=== PATIENT | male | born 1940 | race Caucasian/White ===

== ENCOUNTER 2021-11-30 19:44 | Emergency (ER) | payer OTHER, BC ==
[~2021-11-30] VITALS: Ht 175.3 cm; Wt 79.4 kg
[2021-11-30 19:50] VITALS: BP_SYST 121
--- NOTE | 2021-11-30 19:50 | NUR ---
Pt to bed 1 via EMS w/ c/o "pills stuck in throat" and "choking". Respirations even and unlabored. normal skin color for ethnicity. Pt able to speak in clear, complete sentences. No acute distress at this time.
--- NOTE | 2021-11-30 19:51 | NUR ---
# 18 gauge angiocath placed to left forearm in the field by EMS. Use of asceptic technique. Opsite placed over site. Flushed with 10 cc of normal saline. No evidence of infiltration noted. Patient tolerated well.
--- NOTE | 2021-11-30 19:55 | NUR ---
Pt drank 240 mL of water at this time and states "My throat feels so much better I feel like the pills are gone". MD present at bedside and aware.
--- NOTE | 2021-11-30 21:45 | NUR ---
Pt informed medical transport will be taking him back to his SNF ETA midnight
--- NOTE | 2021-11-30 22:55 | NUR ---
Pt yelling at this time stating "Why am I here still?!". Pt informed again of his ride coming at midnight to take him back to his SNF. Pt continues yelling regardless of having been updated on his plan of care.
[2021-11-30] MEDS ORDERED: DIPHENHYDRAMINE INJ 50 MG/ML VIAL IVP ONE (23:00)
--- NOTE | 2021-12-01 00:20 | NUR ---
Patient given written and verbal discharge instructions and verbalizes understanding. ER MD discussed with patient the results and treatment provided. Patient in stable condition. ID arm band removed. IV catheter removed intact and dressing applied, no active bleeding. Patient educated on pain management and to follow up with PMD. Pain Scale 2/10. Opportunity for questions provided and answered. Medication side effect fact sheet provided. BLS transport at bedside to transport patient back to his facility. NAD. Respirations even and unlabored. Pt confirms throat feels clear now.
[2021-12-01 00:24] VITALS: BP_SYST 128
== END 2021-12-01 00:24 | disposition home or self-care (01) ==
LOC: SED 19:44
DX: K20.80 Other esophagitis without bleeding (principal); E11.9 Type 2 diabetes mellitus without complications; I10 Essential (primary) hypertension; Z88.0 Allergy status to penicillin
CPT/HCPCS: 96372; 99283; J1200

== ENCOUNTER 2022-12-21 18:56 | Emergency (ER) | payer OTHER, BC ==
[~2022-12-21] VITALS: Ht 172.7 cm; Wt 79.4 kg
--- NOTE | 2022-12-21 21:20 | NUR ---
Patient BIBA to bed 1 and connected to . CC: Cyanotic Penis.
--- NOTE | 2022-12-21 21:20 | NUR ---
PT TO ED [address] GONZALES AT BEDSIDE.
--- NOTE | 2022-12-21 21:28 | NUR ---
Dr. Her will discharge patient back to SNF.
[2022-12-21 21:32] VITALS: BP_SYST 143; BP_SYST 144
[2022-12-21] MEDS ORDERED: KETO60CR2 TP (21:38)
--- NOTE | 2022-12-21 21:42 | NUR ---
Patient given written and verbal discharge instructions and verbalizes understanding. ER MD GONZALES discussed with patient the results and treatment provided. Patient in stable condition. ID arm band removed. IV catheter removed intact and dressing applied, no active bleeding. Rx of KETOCONAZOLE given. Patient educated on pain management and to follow up with PMD. Pain Scale 0 . Opportunity for questions provided and answered. Medication side effect fact sheet provided.
== END 2022-12-21 21:42 ==
LOC: SED 18:56
DX: B37.42 Candidal balanitis (principal); R21 Rash and other nonspecific skin eruption; J45.909 Unspecified asthma, uncomplicated; I10 Essential (primary) hypertension; Z88.0 Allergy status to penicillin; Z79.899 Other long term (current) drug therapy
CPT/HCPCS: 99283

== ENCOUNTER 2023-03-13 12:32 | Emergency (ER) | payer OTHER, BC ==
[~2023-03-13] VITALS: Ht 172.7 cm; Wt 75.3 kg
[~2023-03-13 12:32] MED LIST: KETO60CR2 TP
[2023-03-13 12:35] VITALS: BP_SYST 156; PULSE 90; RESP 18; TEMP 98.9; O2SAT 95
[2023-03-13 13:32] LABS: BASOPHILS # (AUTO) 0.1 K/uL (0.0-0.2); BASOPHILS % (AUTO) 0.8 % (0.0-2.0); EOSINOPHILS # (AUTO) 0.3 K/uL (0.0-0.4); EOSINOPHILS % (AUTO) 2.5 % (0.0-4.0); HEMATOCRIT 49.2 % (36-54); HEMOGLOBIN 16.7 g/dL (14.0-18.0); LYMPHOCYTES # (AUTO) 2.2 K/uL (1.0-5.5); LYMPHOCYTES % (AUTO) 18.5 % (20.5-51.5); MEAN CORPUSCULAR HEMOGLOBIN 32 pg (27-31); MEAN CORPUSCULAR HGB CONC 34 % (32-36); MEAN CORPUSCULAR VOLUME 95 fL (79.0-98.0); MONOCYTES % (AUTO) 8.6 % (1.7-9.3); NEUTROPHILS # (AUTO) 8.1 K/uL (1.8-7.7); NEUTROPHILS % (AUTO) 69.6 % (40.0-70.0); PLATELET COUNT (AUTO) 277 K/uL (130-430); RED BLOOD CELL COUNT(AUTO) 5.18 MIL/uL (4.2-6.2); RED CELL DISTRIBUTION WIDTH 13.7 % (9.0-15.0); WHITE BLOOD COUNT (AUTO) 11.7 K/uL (4.8-10.8)
[2023-03-13 13:46] LABS: ALANINE AMINOTRANSFERASE 48 U/L (12-78); ALBUMIN 3.7 g/dL (3.4-4.8); ANION GAP 10 (5-15); ASPARTATE AMINOTRANSFERASE 21 U/L (10-37); CALCIUM 9.1 mg/dL (8.4-11.0); CARBON DIOXIDE 25 mmol/L (23-29); CHLORIDE 105 mmol/L (98-107); CREATININE 1.05 mg/dL (0.55-1.30); GLUCOSE 95 mg/dL (74-106); POTASSIUM 4.2 mmol/L (3.5-5.1); SODIUM SERUM 140 mmol/L (136-145); TOTAL BILIRUBIN 0.5 mg/dL (0.0-1.0); TOTAL PROTEIN, SERUM 7.2 g/dL (6.4-8.3); UREA NITROGEN, BLOOD 20 mg/dL (8-21)
[2023-03-13] MEDS ORDERED: DIPHENHYDRAMINE INJ 50 MG/ML VIAL IM ONE (14:15)
[2023-03-13] MEDS ORDERED: LORazepam 2 MG/ML VIAL IM ONE (14:15)
[2023-03-13] MEDS ORDERED: HALOPERIDOL LACTATE 5 MG/ML VIAL IM ONE (14:15)
[2023-03-13] MEDS ORDERED: NACL 0.9% 1,000 ML IV ONE (15:30)
[2023-03-13 15:35] LABS: INR 1.1 (0.80-1.20); PROTHROMBIN TIME 11.1 SECS (9.5-12.5)
[2023-03-13 15:50] LABS: AMYLASE 50 U/L (0-100); LIPASE 95 U/L (73-393)
[2023-03-13] MEDS ORDERED: GABA-529 PO (16:17)
[2023-03-13] MEDS ORDERED: DOCU-144 PO (16:17)
[2023-03-13] MEDS ORDERED: GLUC-141 PO (16:17)
[2023-03-13] MEDS ORDERED: CITA40TA22 PO (16:17)
[2023-03-13] MEDS ORDERED: CRAN450T9 PO (16:17)
[2023-03-13] MEDS ORDERED: CARB1TAB33 PO (16:17)
[2023-03-13] MEDS ORDERED: AZEL6DRO5 EACH EYE (16:17)
[2023-03-13] MEDS ORDERED: MOME220A4 IH (16:17)
[2023-03-13] MEDS ORDERED: [UNRECOGNIZED DRUG - CODE] (16:17)
[2023-03-13] MEDS ORDERED: ASA81 PO (16:17)
[2023-03-13 16:57] LABS: ACETONE, SERUM NEGATIVE (NEGATIVE)
[2023-03-13] MEDS ORDERED: TRAZ-250 PO (17:10)
[2023-03-13] MEDS ORDERED: MIRA50TA PO (17:10)
[2023-03-13] MEDS ORDERED: MULT-1117 PO (17:10)
[2023-03-13] MEDS ORDERED: cefTRIAXone 1 GM IVPB PREMIX 50 ML IV ONE (18:00)
[2023-03-13 20:35] VITALS: BP_SYST 114; PULSE 71; RESP 16; TEMP 98.2; O2SAT 95
== END 2023-03-13 20:35 | disposition home or self-care (01) ==
LOC: SED 12:32
DX: R45.1 Restlessness and agitation (principal); R31.9 Hematuria, unspecified; J45.909 Unspecified asthma, uncomplicated; I10 Essential (primary) hypertension; Z88.0 Allergy status to penicillin; Z79.899 Other long term (current) drug therapy
CPT/HCPCS: 99285; 74176; 96365; 96361; 80053; 82009; 82150; 83690; 85025; 85610; 85730; 36415; 76376; 96372; 83605; 82397; J0696; J1200; J1630; J2060; J7030

== ENCOUNTER 2024-03-16 20:07 | Inpatient (IN) | payer OTHER, BC ==
[~2024-03-16] VITALS: Ht 182.9 cm; Wt 90.3 kg
[~2024-03-16 20:07] MED LIST changes: +ASA81 PO; +AZEL6DRO5 EACH EYE; +CARB1TAB33 PO; +CITA40TA22 PO; +CRAN450T9 PO; +DOCU-144 PO; +GABA-529 PO; +GLUC-141 PO; +MIRA50TA PO; +MOME220A4 IH; +MULT-1117 PO; +TRAZ-250 PO; +[UNRECOGNIZED DRUG - CODE]
[2024-03-16 20:20] VITALS: BP_SYST 128; PULSE 66; RESP 16; TEMP 98.5; O2SAT 94
[2024-03-16 21:47] LABS: BASOPHILS # (AUTO) 0.2 K/uL (0.0-0.2); BASOPHILS % (AUTO) 1.6 % (0.0-2.0); EOSINOPHILS # (AUTO) 0.2 K/uL (0.0-0.4); EOSINOPHILS % (AUTO) 2.1 % (0.0-4.0); HEMATOCRIT 44.5 % (36-54); HEMOGLOBIN 15.4 g/dL (14.0-18.0); LYMPHOCYTES # (AUTO) 2.8 K/uL (1.0-5.5); LYMPHOCYTES % (AUTO) 25.2 % (20.5-51.5); MEAN CORPUSCULAR HEMOGLOBIN 33 pg (27-31); MEAN CORPUSCULAR HGB CONC 35 % (32-36); MEAN CORPUSCULAR VOLUME 94 fL (79.0-98.0); MONOCYTES # (AUTO) 0.7 K/uL (0.0-1.0); MONOCYTES % (AUTO) 5.9 % (1.7-9.3); NEUTROPHILS # (AUTO) 7.1 K/uL (1.8-7.7); NEUTROPHILS % (AUTO) 65.2 % (40.0-70.0); PLATELET COUNT (AUTO) 239 K/uL (130-430); RED BLOOD CELL COUNT(AUTO) 4.74 MIL/uL (4.2-6.2); RED CELL DISTRIBUTION WIDTH 13.6 % (9.0-15.0)
[2024-03-16 21:53] LABS: ALANINE AMINOTRANSFERASE 9 U/L (12-78); ALBUMIN 3.4 g/dL (3.4-4.8); ANION GAP 7 (5-15); ASPARTATE AMINOTRANSFERASE 16 U/L (10-37); BILIRUBIN,DIRECT 0.2 mg/dL (0.0-0.3); CALCIUM 8.9 mg/dL (8.4-11.0); CARBON DIOXIDE 30 mmol/L (23-29); CHLORIDE 101 mmol/L (98-107); CREATININE 0.99 mg/dL (0.55-1.30); GLUCOSE 101 mg/dL (74-106); POTASSIUM 4.4 mmol/L (3.5-5.1); SODIUM SERUM 138 mmol/L (136-145); TOTAL BILIRUBIN 0.5 mg/dL (0.0-1.0); TOTAL PROTEIN, SERUM 7.2 g/dL (6.4-8.3); UREA NITROGEN, BLOOD 18 mg/dL (8-21)
[2024-03-16] MEDS: NACL 0.9% 1,000 ML IV ONE (22:27)
[2024-03-16 22:43] LABS: BILIRUBIN,URINE NEGATIVE (NEGATIVE); BLOOD, URINE NEGATIVE (NEGATIVE); CLARITY/URINE CLEAR (CLEAR); COLOR,URINE YELLOW (YELLOW); GLUCOSE,URINE NEGATIVE (NEGATIVE); KETONES,URINE TRACE (NEGATIVE); LEUKOCYTE ESTERASE ,URINE 1+ (NEGATIVE); NITRITE, URINE NEGATIVE (NEGATIVE); PROTEIN URINE NEGATIVE (NEGATIVE); UROBILINOGEN,URINE 0.2 (0.2-1.0)
[2024-03-16 23:39] LABS: BACTERIA,URINE FEW /HPF (None Seen); MUCUS,URINE 2+ /LPF (None Seen); RBC,URINE 0-3 /HPF (0-3); URINE AMORPHOUS URATE 1+ /HPF (None Seen)
[2024-03-17] VITALS (7 sets, daily range): BP systolic 104–135; PULSE 62–74; RESP 14–20; TEMP 98–98.6; O2SAT 94–98
[2024-03-17] MEDS: cefTRIAXone 1 GM IVPB PREMIX 50 ML IV ONE (01:25)
[2024-03-17] MEDS: cefTRIAXone 1 GM VIAL IV SCH (03:36)
[2024-03-17] MEDS ORDERED: FLUT100B INH (05:25)
[2024-03-17] MEDS ORDERED: MAGN250T35 PO (05:25)
[2024-03-17] MEDS ORDERED: DIVA-74 PO (05:25)
[2024-03-17] MEDS ORDERED: ALBU10.7 INH (05:25)
[2024-03-17] MEDS ORDERED: SENN8.6T19 PO (05:25)
[2024-03-17] MEDS ORDERED: QUET50TA24 PO (05:25)
[2024-03-17] MEDS ORDERED: POLY17PO4 PO (05:25)
[2024-03-17] MEDS ORDERED: PIMA34CA PO (05:25)
[2024-03-17] MEDS ORDERED: ACET325T PO (05:25)
[2024-03-17] MEDS ORDERED: TAMS0.4C96 PO (05:25)
[2024-03-17] MEDS ORDERED: CHOL125C6 PO (05:25)
[2024-03-17] MEDS ORDERED: SACC250C3 PO (05:25)
[2024-03-17] MEDS ORDERED: LORA-258 PO (05:25)
[2024-03-17] MEDS ORDERED: ARIP5TAB42 PO (05:25)
[2024-03-17 08:31] LABS: BASOPHILS # (AUTO) 0.1 K/uL (0.0-0.2); BASOPHILS % (AUTO) 0.9 % (0.0-2.0); EOSINOPHILS # (AUTO) 0.2 K/uL (0.0-0.4); EOSINOPHILS % (AUTO) 2.1 % (0.0-4.0); HEMATOCRIT 42.8 % (36-54); HEMOGLOBIN 14.5 g/dL (14.0-18.0); LYMPHOCYTES # (AUTO) 2.3 K/uL (1.0-5.5); LYMPHOCYTES % (AUTO) 24.5 % (20.5-51.5); MEAN CORPUSCULAR HEMOGLOBIN 32 pg (27-31); MEAN CORPUSCULAR HGB CONC 34 % (32-36); MEAN CORPUSCULAR VOLUME 94 fL (79.0-98.0); MONOCYTES # (AUTO) 0.8 K/uL (0.0-1.0); MONOCYTES % (AUTO) 8.8 % (1.7-9.3); NEUTROPHILS # (AUTO) 6.1 K/uL (1.8-7.7); NEUTROPHILS % (AUTO) 63.7 % (40.0-70.0); PLATELET COUNT (AUTO) 218 K/uL (130-430); RED BLOOD CELL COUNT(AUTO) 4.55 MIL/uL (4.2-6.2); RED CELL DISTRIBUTION WIDTH 13.8 % (9.0-15.0); WHITE BLOOD COUNT (AUTO) 9.6 K/uL (4.8-10.8)
[2024-03-17 08:38] LABS: ALANINE AMINOTRANSFERASE 22 U/L (12-78); ALBUMIN 2.9 g/dL (3.4-4.8); ANION GAP 9 (5-15); ASPARTATE AMINOTRANSFERASE 15 U/L (10-37); CALCIUM 8.1 mg/dL (8.4-11.0); CARBON DIOXIDE 27 mmol/L (23-29); CHLORIDE 103 mmol/L (98-107); CREATININE 0.79 mg/dL (0.55-1.30); GLUCOSE 84 mg/dL (74-106); POTASSIUM 3.8 mmol/L (3.5-5.1); SODIUM SERUM 139 mmol/L (136-145); TOTAL BILIRUBIN 0.5 mg/dL (0.0-1.0); TOTAL PROTEIN, SERUM 6.4 g/dL (6.4-8.3); UREA NITROGEN, BLOOD 15 mg/dL (8-21)
[2024-03-17] MEDS: BUDESONIDE 0.5 MG/2 ML AMPUL.NEB INH SCH (19:48)
[2024-03-17] MEDS: ACETAMINOPHEN 325 MG TABLET PO SCH (21:44)
[2024-03-17] MEDS: CITALOPRAM HYDROBROMIDE 20 MG TABLET PO SCH (21:44)
[2024-03-17] MEDS: CARBIDOPA/LEVODOPA 25/100 MG TABLET PO SCH (21:45)
[2024-03-17] MEDS: DOCUSATE SODIUM 100 MG CAPSULE PO SCH (21:45)
[2024-03-17] MEDS: QUEtiapine FUMARATE 25 MG TABLET PO SCH (21:45)
[2024-03-17] MEDS: DIVALPROEX SODIUM 500 MG TABLET( DEPAKOTE) PO SCH (21:45)
[2024-03-18] VITALS (8 sets, daily range): BP systolic 101–129; PULSE 61–80; RESP 18–20; TEMP 97.7–98.2; O2SAT 95–98
[2024-03-18] MEDS ORDERED: FLUTICASONE FUROATE 100 MCG BLST.W.DEV INH SCH (09:00)
[2024-03-18] MEDS ORDERED: SACCHAROMYCES BOULARDII 250 MG CAPSULE (FLORASTOR) PO SCH (09:00)
[2024-03-18] MEDS ORDERED: LORazepam 1 MG TABLET PO SCH (09:00)
[2024-03-18] MEDS: ASPIRIN 81 MG TAB.CHEW PO SCH (10:22)
[2024-03-18] MEDS: LACTOBACILLUS RHAMNOSUS GG 1 CAP CAPSULE PO SCH (10:22)
[2024-03-18] MEDS: TAMSULOSIN HCL 0.4 MG CAP PO SCH (10:23)
[2024-03-18] MEDS: MULTIVITAMINS TAB 1 TABLET PO SCH (10:23)
[2024-03-18] MEDS: POLYETHYLENE GLYCOL 3350, 17 GM/ POWD.PACK PO SCH (10:23)
[2024-03-18] MEDS: ARIPiprazole 5 MG TAB PO SCH (10:23)
[2024-03-18] MEDS: traZODone HCL 50 MG TABLET (DESYREL) PO SCH (10:23)
[2024-03-18 10:39] LABS: ALANINE AMINOTRANSFERASE 16 U/L (12-78); ANION GAP 6 (5-15); ASPARTATE AMINOTRANSFERASE 20 U/L (10-37); CALCIUM 8.6 mg/dL (8.4-11.0); CARBON DIOXIDE 29 mmol/L (23-29); CHLORIDE 105 mmol/L (98-107); CREATININE 0.97 mg/dL (0.55-1.30); GLUCOSE 88 mg/dL (74-106); POTASSIUM 4.1 mmol/L (3.5-5.1); SODIUM SERUM 140 mmol/L (136-145); TOTAL BILIRUBIN 0.5 mg/dL (0.0-1.0); TOTAL PROTEIN, SERUM 6.5 g/dL (6.4-8.3); UREA NITROGEN, BLOOD 16 mg/dL (8-21)
[2024-03-18] MEDS: cefTRIAXone 1 GM in D5W 50 ML IV SCH (15:02)
[2024-03-18] MEDS: CIPROFLOXACIN HCL 0.3% EYE DRP 2.5 ML DROPS OP SCH (15:05)
[2024-03-19] VITALS (8 sets, daily range): BP systolic 109–123; PULSE 63–81; RESP 16–19; TEMP 97.6–98.8; O2SAT 94–97
[2024-03-19] MEDS ORDERED: [UNRECOGNIZED DRUG - CODE] OP (14:13)
[2024-03-19] MEDS ORDERED: CIPR10DR17 OT (16:05)
[2024-03-19] MEDS: LINEZOLID 300 ML IV ONE (18:15)
[2024-03-20] VITALS (7 sets, daily range): BP systolic 107–164; PULSE 59–67; RESP 16–19; TEMP 97.8–98.7; O2SAT 95–97
[2024-03-20 09:04] LABS: BASOPHILS # (AUTO) 0.1 K/uL (0.0-0.2); EOSINOPHILS # (AUTO) 0.3 K/uL (0.0-0.4); HEMATOCRIT 43.2 % (36-54); HEMOGLOBIN 14.6 g/dL (14.0-18.0); LYMPHOCYTES # (AUTO) 2.3 K/uL (1.0-5.5); LYMPHOCYTES % (AUTO) 30.1 % (20.5-51.5); MEAN CORPUSCULAR HEMOGLOBIN 32 pg (27-31); MEAN CORPUSCULAR HGB CONC 34 % (32-36); MEAN CORPUSCULAR VOLUME 95 fL (79.0-98.0); MONOCYTES # (AUTO) 0.5 K/uL (0.0-1.0); MONOCYTES % (AUTO) 6.8 % (1.7-9.3); NEUTROPHILS # (AUTO) 4.4 K/uL (1.8-7.7); NEUTROPHILS % (AUTO) 58.1 % (40.0-70.0); PLATELET COUNT (AUTO) 222 K/uL (130-430); RED BLOOD CELL COUNT(AUTO) 4.55 MIL/uL (4.2-6.2); RED CELL DISTRIBUTION WIDTH 13.4 % (9.0-15.0); WHITE BLOOD COUNT (AUTO) 7.5 K/uL (4.8-10.8)
[2024-03-20 09:17] LABS: ALANINE AMINOTRANSFERASE 13 U/L (12-78); ANION GAP 10 (5-15); ASPARTATE AMINOTRANSFERASE 15 U/L (10-37); CALCIUM 8.2 mg/dL (8.4-11.0); CARBON DIOXIDE 27 mmol/L (23-29); CHLORIDE 103 mmol/L (98-107); CREATININE 1.02 mg/dL (0.55-1.30); GLUCOSE 132 mg/dL (74-106); POTASSIUM 3.9 mmol/L (3.5-5.1); SODIUM SERUM 140 mmol/L (136-145); TOTAL BILIRUBIN 0.4 mg/dL (0.0-1.0); TOTAL PROTEIN, SERUM 6.7 g/dL (6.4-8.3); UREA NITROGEN, BLOOD 22 mg/dL (8-21)
[2024-03-20] MEDS: LINEZOLID 300 ML IV SCH (10:52)
== END 2024-03-20 16:00 | DRG 71 ==
LOC: SED 20:07 → SMU 03-17 02:51
PROVIDERS: ADMIT Student in an Organized Health Care Education/Training Program; ATTEND Student in an Organized Health Care Education/Training Program
DX: G93.41 Metabolic encephalopathy (principal); E87.20 Acidosis, unspecified; N39.0 Urinary tract infection, site not specified; G20.A1 Parkinson's disease without dyskinesia, without mention of fluctuations; K59.09 Other constipation; I10 Essential (primary) hypertension; F02.80 Dementia in other diseases classified elsewhere, unspecified severity, without behavioral disturbance, psychotic disturbance, mood disturbance, and anxiety; H10.89 Other conjunctivitis; Z88.0 Allergy status to penicillin; Z79.899 Other long term (current) drug therapy; Z79.82 Long term (current) use of aspirin
CPT/HCPCS: 36415; 70450-TC; 71045; 80048; 80053; 80076; 81000; 81001; 81015; 83605; 85025; 87040; 87081; 87086; 87186; 93005; 94070; 94640; 94760; 97110-GP; 97530-GP; 99285; J0696; J1956; J2020; J7030; J7050; J7060; J7626